=== PATIENT | male | born 1980 | race Caucasian/White ===

== ENCOUNTER 2017-07-01 15:04 | Emergency (ER) | payer MEDICAID ==
[2017-07-01] MEDS ORDERED: METOCLOPRAMIDE 10 MG/2 ML VIAL IVP ONE (15:28)
[2017-07-01] MEDS ORDERED: NS 1,000 ML IV ONE ×2 (15:28)
[2017-07-01] MEDS ORDERED: DICYCLOMINE 10 MG CAP PO ONE (15:29)
--- NOTE | 2017-07-01 15:31 | EDPHY ---
H & P Time Seen by Provider: 07/01/17 15:18 HPI/ROS: CHIEF COMPLAINT: Abdominal pain HISTORY OF PRESENT ILLNESS: 36-year-old man presents with epigastric abdominal pain since 3:00 a.m.. He states that is epigastric and does not radiate. It is worse in the deep breath and with palpation. Symptoms moderate to severe currently. Not associated with diarrhea or nausea. Similar symptoms 1/2 years ago after a 3 day cocaine binge, he has been using methamphetamine and cocaine extensively recently. REVIEW OF SYSTEMS: Eye: no change in vision ENT: no sore throat Cardiac: no chest pain or syncope Pulmonary: no cough or SOB Abdomen: HPI Musculoskeletal: no back pain Skin: no rash Neuro: no headache Constitutional: no fever : no urinary symptoms A comprehensive 10 point review of systems is otherwise negative aside from elements mentioned in the history of present illness. PAST MEDICAL HISTORY: Recurrent left shoulder dislocation, no previous surgeries Social history: Drug as above, works in customer support technician. No alcohol. General Appearance: Alert and conversant, cooperative. Eyes: No scleral icterus. ENT, Mouth: Normal mucous membranes. Respiratory: Normal respiratory effort, breath sounds equal, lungs are clear to auscultation. Cardiovascular: Regular rate and rhythm. Gastrointestinal: Epigastric and right upper quadrant tenderness without guarding or rebound. No McBurney's point tenderness. Neurological: Alert and oriented x3. Normally conversant. Face symmetric, normal movement and sensation in all extremities. Skin: Multiple superficial skin sores but no evidence of cellulitis. Musculoskeletal: No peripheral edema and no joint swelling. Psychiatric: Not agitated. Emergency Department course/MDM: Patient specifically requested to not get opioid medications. IV normal saline 2 L, Reglan 10 mg and Bentyl 20 mg, labs to include LFTs and lipase. Electrocardiogram. 1808: Feels better, no more abdominal pain, his back is sore from lying on the [facility]. Soft nontender on examination. Smoking Status: Current every day smoker Constitutional: Initial Vital Signs Temperature (C) 37.0 C 07/01/17 15:07 Heart Rate 89 07/01/17 15:07 Respiratory Rate 18 07/01/17 15:07 Blood Pressure 121/93 H 07/01/17 15:07 O2 Sat (%) 95 07/01/17 15:07 O2 Delivery Mode Room Air Allergies/Adverse Reactions: No Known Allergies Allergy (Unverified 07/01/17 15:06) Home Medications: Medication Instructions Recorded NK [No Known Home Meds] 07/01/17 Medical Decision Making - Diagnostics EKG Interpretation: 12-lead EKG interpreted by me; official reading is in trace master. My interpretation is sinus rhythm rate 58 no ischemic changes. Differential Diagnosis: Differential diagnosis considered for abdominal pain including but not limited to perforated ulcer, ACS, appendicitis, cholecystitis, pancreatitis, gastritis and urinary tract infection. - Data Points Laboratory Results: Laboratory Results 07/01/17 15:18 07/01/17 15:18 07/01/17 07/01/17 15:18 15:18 WBC 9.15 10^3/uL 10^3/uL (3.80-9.50) RBC 4.91 10^6/uL 10^6/uL (4.40-6.38) Hgb 15.5 g/dL g/dL (13.7-17.5) Hct 40.0 % % (40.0-51.0) MCV 81.5 fL fL (81.5-99.8) MCH 31.6 pg pg (27.9-34.1) MCHC 38.8 g/dL H g/dL (32.4-36.7) RDW 12.3 % % (11.5-15.2) Plt Count 260 10^3/uL 10^3/uL (150-400) MPV 10.1 fL fL (8.7-11.7) Neut % (Auto) 79.7 % H % (39.3-74.2) Lymph % (Auto) 13.3 % L % (15.0-45.0) [place] % (Auto) 5.8 % % (4.5-13.0) Eos % (Auto) 0.2 % L % (0.6-7.6) Baso % (Auto) 0.5 % % (0.3-1.7) Nucleat RBC Rel Count 0.0 % % (0.0-0.2) Absolute Neuts (auto) 7.28 10^3/uL H 10^3/uL (1.70-6.50) Absolute Lymphs (auto) 1.22 10^3/uL 10^3/uL (1.00-3.00) Absolute Monos (auto) 0.53 10^3/uL 10^3/uL (0.30-0.80) Absolute Eos (auto) 0.02 10^3/uL L 10^3/uL (0.03-0.40) Absolute Basos (auto) 0.05 10^3/uL 10^3/uL (0.02-0.10) Absolute Nucleated RBC 0.00 10^3/uL 10^3/uL (0-0.01) Immature Gran % 0.5 % % (0.0-1.1) Immature Gran # 0.05 10^3/uL 10^3/uL (0.00-0.10) RBC/WBC/PLT Morphology NORMAL (NORMAL) Platelet Estimate ADEQUATE (ADEQ) Sodium 141 mEq/L mEq/L (134-144) Potassium 4.0 mEq/L mEq/L (3.5-5.2) Chloride 99 mEq/L mEq/L (97-110) Carbon Dioxide 24 mEq/l mEq/l (22-31) Anion Gap 18 mEq/L H mEq/L (8-16) BUN 8 mg/dL mg/dL (7-23) Creatinine 0.9 mg/dL mg/dL (0.7-1.3) Estimated GFR > 60 Glucose 113 mg/dL H mg/dL (70-100) Calcium 10.4 mg/dL mg/dL (8.5-10.4) Total Bilirubin 1.0 mg/dL mg/dL (0.1-1.4) Conjugated Bilirubin 0.5 mg/dL mg/dL (0.0-0.5) Unconjugated Bilirubin 0.5 mg/dL mg/dL (0.0-1.1) AST 26 IU/L IU/L (17-59) ALT 29 IU/L IU/L (21-72) Alkaline Phosphatase 104 IU/L IU/L (38-126) Total Protein 8.0 g/dL g/dL (6.3-8.2) Albumin 5.1 g/dL H g/dL (3.5-5.0) Lipase 78 IU/L IU/L (23-300) Medications Given: Discontinued Medications Dicyclomine HCl (Bentyl) 20 mg PO EDNOW ONE Stop: 07/01/17 15:30 Last Admin: 07/01/17 15:52 Dose: 20 mg Sodium Chloride (Ns) 1,000 mls @ 0 mls/hr IV EDNOW ONE; Wide Open PRN Reason: Protocol Stop: 07/01/17 15:29 Last Admin: 07/01/17 15:53 Dose: 1,000 mls Sodium Chloride (Ns) 1,000 mls @ 0 mls/hr IV EDNOW ONE; Wide Open PRN Reason: Protocol Stop: 07/01/17 15:29 Last Admin: 07/01/17 17:06 Dose: 1,000 mls Metoclopramide HCl (Reglan Injection) 10 mg IVP EDNOW ONE Stop: 07/01/17 15:29 Last Admin: 07/01/17 15:51 Dose: 10 mg Departure - Departure Disposition: Home, Routine, Self-Care Clinical Impression: Abdominal pain Qualifiers: Abdominal location: epigastric Qualified Code(s): R10.13 - Epigastric pain Condition: Good Instructions: Acute Abdominal Pain (ED) Referrals: Geoff Kaur MD [Medical Doctor] - As per Instructions [facility],. [Clinic] - As per Instructions
--- NOTE | 2017-07-01 15:41 | CPEKG ---
Heart Rate: 58 RR Interval: 1034 P-R Interval: 148 QRSD Interval: 82 QT Interval: 440 QTC Interval: 433 P [place]: 45 QRS [place]: 40 T Wave [place]: 56 EKG Severity - NORMAL ECG - EKG Impression: SINUS RHYTHM Electronically Signed By: Yasir Fitzpatrick 01-Jul-2017 15:43:39
[2017-07-01 15:44] LABS: ALANINE AMINOTRANSFERASE 29 IU/L (21-72); ALBUMIN 5.1 g/dL (3.5-5.0); ALKALINE PHOSPHATASE 104 IU/L (38-126); ANION GAP 18 mEq/L (8-16); ASPARTATE AMINOTRANSFERASE 26 IU/L (17-59); BILIRUBIN-CONJUGATED 0.5 mg/dL (0.0-0.5); BILIRUBIN-UNCONJUGATED 0.5 mg/dL (0.0-1.1); CALCIUM 10.4 mg/dL (8.5-10.4); CARBON DIOXIDE 24 mEq/l (22-31); CHLORIDE 99 mEq/L (97-110); CREATININE 0.9 mg/dL (0.7-1.3); GLOMERULAR FILTRATION RATE > 60; GLUCOSE 113 mg/dL (70-100); SODIUM 141 mEq/L (134-144)
[2017-07-01 16:11] LABS: % IMMATURE GRANULYOCYTES 0.5 % (0.0-1.1); ABSOLUTE IMMATURE GRANULOCYTES 0.05 10^3/uL (0.00-0.10); ADD DIFF? NO; HEMOGLOBIN 15.5 g/dL (13.7-17.5); MEAN CELL HEMOGLOBIN 31.6 pg (27.9-34.1); MEAN CELL VOLUME 81.5 fL (81.5-99.8); MEAN PLATELET VOLUME 10.1 fL (8.7-11.7); PLATELET COUNT 260 10^3/uL (150-400); RED BLOOD CELL COUNT 4.91 10^6/uL (4.40-6.38); RED CELL DISTRIBUTION WIDTH 12.3 % (11.5-15.2)
[2017-07-01 16:13] LABS: MEAN CELL HEMOGLOBIN CONCENTR. 38.8 g/dL (32.4-36.7)
[2017-07-01 17:19] LABS: ADD MORPH? YES; ADD SCAN? NO
[2017-07-01 17:58] LABS: PLATELET ESTIMATE ADEQUATE (ADEQ)
[2017-07-01 18:33] VITALS: BP 126/87; PULSE 74; RESP 16; TEMP 98.4; O2SAT 94
== END 2017-07-01 18:33 | disposition home or self-care (01) ==
DX: R10.13 Epigastric pain (principal); F17.200 Nicotine dependence, unspecified, uncomplicated; E86.9 Volume depletion, unspecified
CPT/HCPCS: 96374; J2765